=== PATIENT | female | born 1980 | race Caucasian/White ===

== ENCOUNTER 2021-02-11 17:27 | Inpatient (IN) | payer OTHER ==
[~2021-02-11] VITALS: Ht 167.6 cm; Wt 85.3 kg
[2021-02-11 20:26] VITALS: BP 112/72
[2021-02-11 22:54] LABS: HEMATOCRIT 39.2 % (37.0-47.0); HEMOGLOBIN 13.6 gm/dL (12.0-15.0); MCH 29.5 pg (26.0-34.0); MCHC 34.5 g/dL (28.0-37.0); MCV 85.4 fL (80.0-100.0); RBC 4.59 mil/uL (4.20-5.00); RDW 12.7 % (10.5-14.5); WBC 8.4 thou/uL (4.0-11.0)
[2021-02-11 23:33] LABS: CALCIUM 8.8 mg/dL (8.5-10.1); CREATININE 1.2 mg/dL (0.6-1.0); POTASSIUM 3.7 mmol/L (3.5-5.1)
--- NOTE | 2021-02-12 02:10 | NUR ---
PT WAS TRANSFERRED TO US FROM [facility] WITH ABD PAIN/CHOLEYCYSTITIS.ADMISSION HX,EDUCATION AND ASSESSMENT COMPLETED.PT NPO AT THIS TIME.MOUTH SWAB PROVIDED.PT C/O ABD PAIN THAT RADIATES TO HER BACK,MANAGED WITH MED.IVF STARTED.CONSULT CALLED TO DR TORRES.PT RESTING ON HER BED AT THIS TIME.CALL LIGHT WITHIN REACH.
[2021-02-12 03:49] VITALS: BP 100/57
[2021-02-12 08:33] VITALS: BP 116/53
--- NOTE | 2021-02-12 08:51 | NUR ---
PT RESTING IN BED. PT STATED HER PAIN TO ABD IS 2 ON 1-10 SCALE. PT STATED SHE HAS A HEADACHE OF 4 ON 1-10 SCALE. PT STATED PAIN IS TO EPIGASTRIC AREA AND FEELS LIKE A PRESSURE BUILD UP AND WANTS TO BLOW-UP. PT HAS IV TO LEFT AC NS AT 100ML/HR. PT NPO AT THIS TIME FOR POSS. SURGERY. PT STATED LBM WAS SATURDAY. NO FEELINGS OF NAUSEA. PT REFUSED MORPHINE MED AT THIS TIME.
[2021-02-12 13:39] LABS: INR 1.13; PROTIME 12.2 Seconds (10.5-12.1)
[2021-02-12 13:42] LABS: ALBUMIN 3.5 g/dL (3.4-5.0); CALCIUM 8.2 mg/dL (8.5-10.1); MAGNESIUM 1.9 mg/dL (1.8-2.4); POTASSIUM 4.1 mmol/L (3.5-5.1); TOTAL BILIRUBIN 0.7 mg/dL (0.2-1.0); TOTAL PROTEIN 6.7 g/dL (6.4-8.2)
--- NOTE | 2021-02-12 14:11 | NUR ---
PERFORMED COVID FAST CHECK PRIOR TO SURGERY.
--- NOTE | 2021-02-12 14:50 | NUR ---
PT GETTING READY TO LEAVE FOR SURGERY. DR. TORRES CAME TO SEE PT AND PT HAS BEEN NPO SINCE MIDNIGHT. PT READY TO GO TO SURGERY. PT VOIDED PRIOR TO GOING TO SURGERY.
--- NOTE | 2021-02-12 15:00 | NUR ---
PT LEFT TO SURGERY VIA BED.
[2021-02-12 15:38] LABS: BASOPHILS 0.9 % (0.0-2.0); EOSINOPHILS 0.8 % (0.0-3.0); HEMATOCRIT 38.8 % (37.0-47.0); HEMOGLOBIN 13.2 gm/dL (12.0-15.0); LYMPHOCYTES 31.2 % (24.0-44.0); MCH 29.7 pg (26.0-34.0); MCHC 33.9 g/dL (28.0-37.0); MCV 87.4 fL (80.0-100.0); PLATELET COUNT 305 thou/uL (150-400); POLYS 62.1 % (36.0-66.0); RBC 4.44 mil/uL (4.20-5.00); RDW 12.6 % (10.5-14.5); WBC 6.5 thou/uL (4.0-11.0)
--- NOTE | 2021-02-12 16:43 | NUR ---
PT BACK FROM SURGERY. PT STATED SHE IS NOT HAVING ANY PAIN AT THIS TIME OR EXPECTED TO HAVE PAIN. PT DENIES ANY NAUSEA.
[2021-02-12 16:49] VITALS: BP 117/74
--- NOTE | 2021-02-12 17:10 | NUR ---
PT TOLERATED DINNER WITHOUT ANY PAIN OR N/V. PT HAS NOT GOT OUT OF BED SINCE COMING BACK FROM SURGERY. TOLD PT TO CALL BEFORE GETTING UP ON FIRST TIME.
--- NOTE | 2021-02-12 18:00 | NUR ---
PT WILL STAY TILL TOMMOWRROW DUE TO LATE SURGERY. PT DOES LIVE FAR AWAY. DR. GODINEZ STATED SHE CAN D/C TOMMORROW.
--- NOTE | 2021-02-12 18:23 | O ---
[facility] [place] [place] [address] [address] [place] [address] OPERATIVE REPORT Name: NGUYEN RENEE Room #: 434-P ADM IN M.R.#: [id number] Admission: 02/11/21 Attend Phys: Guerda Calvert Shin Discharge: Date of : 78 Report #: [id number] THIS REPORT FOR: cc: FAM - Family physician unknown FAM - Family physician unknown Dao Navarro MD ~ DATE OF SERVICE: 02/12/2021 PREOPERATIVE DIAGNOSIS: Acute cholecystitis. POSTOPERATIVE DIAGNOSIS: Acute cholecystitis. OPERATION: Laparoscopic cholecystectomy. SURGEON: Dao Navarro MD ANESTHESIA: General. ESTIMATED BLOOD LOSS: Minimal. SPECIMENS: Gallbladder. DESCRIPTION OF PROCEDURE: After informed consent was obtained, the patient was brought to the operating room and placed supine. SCDs were placed and working, preoperative antibiotics were administered, general anesthesia was induced. The abdomen was prepped and draped in the usual sterile fashion. A 10-mm incision was made below the umbilicus. Fascia was incised and a trocar was placed. Pneumoperitoneum was established. Three right upper quadrant 5 mm ports were placed. Gallbladder was grasped at the fundus and retracted cephalad. Infundibulum was grasped and retracted laterally. I dissected out the cystic duct and cystic artery as well as the cystic plate. Cystic duct and artery were clipped and ligated leaving 2 clips on the remaining duct and 1 on the remaining artery. Gallbladder was then taken off the liver bed with electrocautery. It was placed into an Endopouch and removed. The fascia was then closed with a [id number] 0 Vicryl. Skin was closed with 4-0 Monocryl. Incisions were dressed with Steri-Strips. COMPLICATIONS: None. DISPOSITION: The patient was taken to recovery in satisfactory condition. <ELECTRONICALLY SIGNED> By: Dao Navarro MD 02/12/21 1823 1501 1604 Dao Navarro MD /nt
[2021-02-12 20:10] VITALS: BP 117/74
--- NOTE | 2021-02-13 04:54 | NUR ---
ASSUMED PT CARE AT 1900. PT IS ALERT AND OFRIENED x4. PT HAS 4 LAP SITES WHICH ARE C/D/I. PT C/O PAIN WHICH WAS MANAGED BY PRN PAIN MEDS. PT DID NOT C/O N/V. PT TOLERATING RA. MEDS GIVEN PER EMAR ORDER. NO VISIBLE SIGN OF DISTRESS NOTED. FALL PRECAUTIONS IN PLACE. WILL CONTINUE TO MONITOR.
[2021-02-13 06:10] LABS: ABSOLUTE NEUTROPHILS 9.9 thou/uL (1.4-8.2); BASOPHILS 0.1 % (0.0-2.0); HEMATOCRIT 39.1 % (37.0-47.0); HEMOGLOBIN 13.3 gm/dL (12.0-15.0); LYMPHOCYTES 6.7 % (24.0-44.0); MCH 29.6 pg (26.0-34.0); MCV 87.2 fL (80.0-100.0); PLATELET COUNT 312 thou/uL (150-400); POLYS 91.2 % (36.0-66.0); RBC 4.48 mil/uL (4.20-5.00); RDW 12.8 % (10.5-14.5); WBC 10.9 thou/uL (4.0-11.0)
[2021-02-13 06:31] LABS: ALBUMIN 3.5 g/dL (3.4-5.0); CALCIUM 8.3 mg/dL (8.5-10.1); CREATININE 1.1 mg/dL (0.6-1.0); MAGNESIUM 2.1 mg/dL (1.8-2.4); PHOSPHORUS 2.4 mg/dL (2.5-4.9); POTASSIUM 4.3 mmol/L (3.5-5.1); TOTAL BILIRUBIN 0.4 mg/dL (0.2-1.0); TOTAL PROTEIN 7.1 g/dL (6.4-8.2)
[2021-02-13 07:26] VITALS: BP 100/61
[2021-02-13 08:15] VITALS: BP 100/61
--- NOTE | 2021-02-13 11:46 | NUR ---
ASSUMED CARE OF PT AT 0730. PT A&OX4. 4 LAP SITES TO ABDOMEN, STERI STRIPS IN PLACE, DRIED DRAINAGE NOTED. PT TOLERATING DIET. PT GAIT IS STEADY. BS, ACTIVE. PT WOULD LIKE TO DC HOME
[2021-02-13] MEDS ORDERED: ACETAMINOPHEN325 M1 PO (11:47)
[2021-02-13] MEDS ORDERED: ZOFRAN 4 MG ORAL4 MG PO (11:47)
[2021-02-13 12:40] VITALS: BP 100/61
--- NOTE | 2021-02-15 19:07 | PATH ---
[facility] [address] [address] PATHOLOGY RPT PROCEDURE Name: VÍCTOR,NGUYEN Room #: 434-P [facility] IN M.R.#: [id number] Admission: 02/11/21 Date of : 78 Discharge: 02/13/21 Report #: [id number] Path Case #: [id number] [facility] Accession Number: [id number] . 01 Material submitted: . gallbladder - GALLBLADDER . 02 Diagnosis: Gallbladder, cholecystectomy: - Mild chronic cholecystitis. 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 02 Electronically signed: . Maria Esther Astorga MD, Pathologist NPI- [id number] . 01 Gross description: . Fixative: Formalin Labeled: Gallbladder Specimen received: Intact gallbladder Dimensions: 7.7 x 3.3 x 3.2 cm Serosa: [place]-green Lymph node: Not identified Mucosa: Velvety, bile-stained Average wall thickness: 0.1 cm Calculi: Not identified Abnormalities: None identified . Tank Calibrator body, fundus, and the cystic duct margin in cassette A1. (CAA; 02/14/2021) QA/[facility] 02/14/2021 0936 Local . 02 Pathologist provided ICD-10: K81.1 . 02 CPT . 044339 Specimen Comment: A courtesy copy of this report has been sent to [phone] Specimen Comment: Report sent to Performed at: 01 [facility] [id number] [address] [id number] MD Cody Scott MD Phone: [phone] Performed at: [address] [id number] [address] [address] PATHOLOGY RPT PROCEDURE Name: NGUYEN RENEE Room #: 434-P DIS IN M.R.#: [id number] Admission: 02/11/21 Date of : 78 Discharge: 02/13/21 Report #: [id number] Path Case #: [id number] MD Maria Esther Astorga MD Phone: [phone]
== END 2021-02-13 13:07 | disposition home or self-care (01) | DRG 418 ==
LOC: 4S 17:27
PROVIDERS: Internal Medicine; Nurse Practitioner Family; ADMIT Hospitalist; ATTEND Hospitalist
PROC: 0FT44ZZ Resection of Gallbladder, Percutaneous Endoscopic Approach (ICD-10-PCS; principal; 2021-02-12)
DX: K81.0 Acute cholecystitis (principal); N17.9 Acute kidney failure, unspecified; N80.9 Endometriosis, unspecified; Z20.822 Contact with and (suspected) exposure to COVID-19; Z79.899 Other long term (current) drug therapy; Z90.710 Acquired absence of both cervix and uterus; Z88.8 Allergy status to other drugs, medicaments and biological substances
CPT/HCPCS: 10195; 50010; 50101; 50411; 50555; 51489; 52265; 52266; 53307; 53312; 53314; 55245; 56462; 56525; 56526; 58574; 62110; 62900; 70005